=== PATIENT | male | born 1970 | race Caucasian/White ===

== ENCOUNTER 2020-07-21 12:27 | Outpatient (CLI) | payer OTHER | END 2020-07-21 12:41 | disposition home or self-care (01) | LOC: RAD 12:27 | PROVIDERS: ATTEND Orthopaedic Surgery | DX: M25.562 Pain in left knee (principal) ==

== ENCOUNTER 2020-08-09 10:55 | Day surgery (SDC) | payer OTHER ==
[2020-08-09] MEDS ORDERED: ULTRAM50 MG PO (13:45)
== END 2020-08-09 17:05 | disposition home or self-care (01) ==
LOC: CIR.AMB 10:55
PROVIDERS: ATTEND Orthopaedic Surgery
DX: M23.322 Other meniscus derangements, posterior horn of medial meniscus, left knee (principal); M65.862 Other synovitis and tenosynovitis, left lower leg; M94.262 Chondromalacia, left knee; Z20.828 Contact with and (suspected) exposure to other viral communicable diseases